=== PATIENT | male | born 1940 | race Caucasian/White ===

== ENCOUNTER 2020-04-01 16:09 | Emergency (ER) | payer MEDICARE ==
[2020-04-01] MEDS ORDERED: NEOMYCIN/POLYMYX/BACITR OINT 0.9 GM PKT ONE (18:24)
== END 2020-04-01 19:40 | disposition home or self-care (01) ==
LOC: FSED 16:30
DX: R50.9 Fever, unspecified (principal); L03.114 Cellulitis of left upper limb
CPT/HCPCS: 71045; 99283